=== PATIENT | male | born 1980 ===

== ENCOUNTER 2016-12-18 23:31 | Emergency (ER) | payer BC ==
--- NOTE | 2016-12-18 23:56 | C.PDOC ---
History Of Present Illness 36 y/o male with a history of hemorrhoids, presents to the ER c/o rectal bleeding for 2 days. Patient notes similar symptoms in the past. Denies fever, chills, nausea, vomiting, or any other complaints. Bleeding is worse with straining Time Seen by Provider: 12/18/16 23:56 Chief Complaint (Nursing): GI Problem History Per: Patient History/Exam Limitations: no limitations Onset/Duration Of Symptoms: Days (2) Current Symptoms Are (Timing): Still Present Number Of Bleeding Episodes: Unknown Amount of Blood Loss: Small Severity: Mild Pain Scale Rating Of: 2 Quality Of Discomfort: Burning Associated Symptoms: Rectal Bleeding. denies: Nausea, Vomiting Modifying Factors: None Recent travel outside of the [place]: No Additional History Per: Patient Past Medical History Reviewed: Historical Data, Nursing Documentation, Vital Signs Vital Signs: Last Vital Signs Temp 98.9 F 12/18/16 23:45 Pulse 78 12/18/16 23:45 Resp 20 12/18/16 23:45 BP 124/76 12/18/16 23:45 Pulse Ox 98 12/19/16 00:32 Family History: States: Unknown Family Hx - Social History Hx Alcohol Use: Yes Hx Substance Use: No - Immunization History Hx Tetanus Toxoid Vaccination: No Hx Influenza Vaccination: No Hx Pneumococcal Vaccination: No Review Of Systems Constitutional: Negative for: Fever, Chills ENT: Negative for: Throat Pain Cardiovascular: Negative for: Chest Pain Respiratory: Negative for: Shortness of Breath Gastrointestinal: Positive for: Rectal Pain, Other (Rectal bleeding). Negative for: Nausea, Vomiting Genitourinary: Negative for: Dysuria Musculoskeletal: Negative for: Back Pain Skin: Negative for: Rash Neurological: Negative for: Weakness Psych: Negative for: Anxiety Physical Exam - Physical Exam Appears: Non-toxic, No Acute Distress Skin: Warm, Dry Head: Normacephalic Eye(s): bilateral: Normal Inspection Oral Mucosa: Moist Cardiovascular: Rhythm Regular Respiratory: No Rales, No Rhonchi, No Wheezing Gastrointestinal/Abdominal: Soft, No Tenderness, No Distention Rectal: Hemorrhoids (2 large external hemorrhoids), Tenderness, Other (Small small amount of dry blood seen around the sphincter. Non-thrombosed hemorrhoid. Patient refused full exam.) Back: No CVA Tenderness Extremity: No Tenderness Extremity: Bilateral: Atraumatic Neurological/Psych: Oriented x3, Normal Speech, Normal Cognition Gait: Steady ED Course And Treatment - Laboratory Results Result Diagrams: 12/19/16 00:58 12/19/16 00:58 O2 Sat by Pulse Oximetry: 98 (RA) Pulse Ox Interpretation: Normal Progress Note: Patient is resting comfortably, tolerating PO, and abdomen is soft. Patient has no active rectal bleeding, is not orthostatic, and vital signs are stable. Patient was instructed to follow up with their physician/ clinic in 1-2 days. Reevaluation Time: 01:14 Reassessment Condition: Improved Medical Decision Making Medical Decision Making: Upon provider reevaluation patient is feeling better, is medically stable, and requires no further treatment in the ED at this time. Patient will be discharged home with Rx for anusol -hc and miralax . Counseling was provided and all questions were answered regarding diagnosis and need for follow up with the referred clinic. There is agreement to discharge plan. Return if symptoms persist or worsen. Disposition Counseled Patient/Family Regarding: Studies Performed, Diagnosis, Need For Followup, Rx Given - Disposition Referrals: Mike Danielson MD [Staff Provider] - Jose Moya MD [Staff Provider] - Disposition: HOME/ ROUTINE Disposition Time: 23:56 Condition: FAIR Prescriptions: Hydrocortisone 2.5% (Rectal) [Anusol-HC] 30 applic NE BID #1 tube Polyethylene Glycol 3350 [Miralax] 17 gm PO DAILY #270 ml Instructions: Rectal Bleeding (DC), Hemorrhoids (ED) Forms: [employer] ([employer]) Print Language: GEORGIAN - Clinical Impression Clinical Impression: Hemorrhoids, Rectal bleeding - Scribe Statement The provider has reviewed the documentation as recorded by the Scribjessica [email or web address] All medical record entries made by the Scribe were at my direction and personally dictated by me. I have reviewed the chart and agree that the record accurately reflects my personal performance of the history, physical exam, medical decision making, and the department course for this patient. I have also personally directed, reviewed, and agree with the discharge instructions and disposition.
[2016-12-19] MEDS ORDERED: Sodium Chloride 0.9% 1,000 ML IV ONE (00:10)
[2016-12-19 01:01] LABS: BASO % 0.5 % (0.0-2.0); EOS # 0.2 K/uL (0.0-0.7); EOS % 2.2 % (0.0-4.0); HEMATOCRIT 42.2 % (35.0-51.0); LYMPH # 1.9 K/uL (1.0-4.3); LYMPH % 26.9 % (20.0-40.0); MEAN CELL VOLUME 84.3 fL (80.0-94.0); MEAN CORPUSCULAR HEMOGLOBIN 27.4 pg (27.0-31.0); MEAN CORPUSCULAR HGB CONC 32.5 g/dL (33.0-37.0); MEAN PLATELET VOLUME 9.1 fL (7.2-11.7); MONO # 0.6 K/uL (0.0-0.8); MONO % 8.7 % (0.0-10.0); RED CELL DISTRIBUTION WIDTH 14.8 % (11.5-14.5)
[2016-12-19 01:08] LABS: CHLORIDE 99 mmol/L (98-107)
[2016-12-19 01:09] LABS: POTASSIUM 4.4 mmol/L (3.6-5.2); SODIUM 139 mmol/L (132-148)
[2016-12-19 01:11] LABS: ALB/GLOB RATIO 1.3 (1.0-2.1); AST/SGOT 24 U/L (17-59); BILIRUBIN,TOTAL 0.6 mg/dL (0.2-1.3); BLOOD UREA NITROGEN 18 mg/dL (9-20); CARBON DIOXIDE 28 mmol/L (22-30); GFR AFRICAN-AMERICAN > 60; TOTAL PROTEIN 7.5 g/dL (6.3-8.3)
[2016-12-19 01:12] LABS: ALKALINE PHOSPHATASE 45 U/L (38-126); ALT/SGPT 27 U/L (21-72); CALCIUM 9.5 mg/dl (8.6-10.4); GLUCOSE,RANDOM 80 mg/dL (75-110)
[2016-12-19 01:15] LABS: INR 1.1
[2016-12-19 01:38] VITALS: BP 126/77; PULSE 63; RESP 18; TEMP 97.8; O2SAT 100
== END 2016-12-19 01:49 | disposition home or self-care (01) ==
LOC: C.ER 23:31
DX: K64.4 Residual hemorrhoidal skin tags (principal); K62.5 Hemorrhage of anus and rectum
CPT/HCPCS: 80053; 85025; 85610; 85730; 86850; 86900; 99285; J7040